=== PATIENT | female | born 1945 | race African-American/Black ===

== ENCOUNTER 2023-01-12 05:09 | Observation (INO) | payer MEDICARE, OTHER ==
[2023-01-12] VITALS (14 sets, daily range): BP systolic 131–166; BP diastolic 61–95
[~2023-01-12] VITALS: Ht 165.1 cm; Wt 109.6 kg
[2023-01-12] MEDS ORDERED: LEVOTHYROXIN75 MCG PO (05:39)
[2023-01-12] MEDS ORDERED: METOPROL TAR25 MG PO (05:40)
[2023-01-12] MEDS ORDERED: ATORVASTATIN CA40 MG PO (05:41)
[2023-01-12] MEDS ORDERED: FUROSEMIDE20 MG PO (05:43)
[2023-01-12] MEDS ORDERED: LOSARTAN POTASS50 MG PO (05:44)
[2023-01-12] MEDS ORDERED: NORVASC PO (05:45)
[2023-01-12] MEDS ORDERED: LANTUS100 UNIT SC (05:46)
[2023-01-12] MEDS ORDERED: HUMALOG100 UNIT (05:47)
[2023-01-12] MEDS ORDERED: ASPIRIN81 MG PO (05:48)
[2023-01-12 05:54] LABS: BASO% 0.3 % (0-3); EOS% 0.9 % (0-8); HEMATOCRIT 38.3 % (37.0-47.0); HEMOGLOBIN 11.3 g/dl (12.0-16.0); IMMATURE GRANULOCYTES 0.2 % (0.0-5.0); LYMPH% 8.9 % (15-41); MEAN CELL VOLUME 91.6 fL CALC (80.0-100.0); MEAN CORPUSCULAR HGB CONC 29.5 g/dL CAL (32.0-36.0); MONO% 12.8 % (2-13); NEUT# 8.45 thou/uL (2.00-7.15); NEUT% 76.9 % (42-76); RED BLOOD COUNT 4.18 mill/uL (4.20-5.60); RED CELL DISTRI WIDTH 15.3 % (11.5-15.5)
[2023-01-12 06:07] LABS: ALBUMIN 4.2 g/dL (3.2-5.0); BILIRUBIN, TOTAL 0.2 mg/dL (0.02-1.3); CREATININE 1.9 mg/dL (0.5-1.0); POTASSIUM 4.7 mmol/l (3.5-5.1)
[2023-01-12 06:08] LABS: INTERNATIONAL NORMALIZED RATIO 1.1 RATIO (0.7-1.3); PROTHROMBIN TIME 10.6 SECONDS (9.0-12.5)
[2023-01-12 07:03] LABS: BASO% 0.2 % (0-3); EOS% 0.8 % (0-8); HEMATOCRIT 35.5 % (37.0-47.0); HEMOGLOBIN 10.5 g/dl (12.0-16.0); IMMATURE GRANULOCYTES 0.2 % (0.0-5.0); LYMPH% 7.3 % (15-41); MEAN CORPUSCULAR HGB 26.9 pG CALC (26.0-32.0); MEAN CORPUSCULAR HGB CONC 29.6 g/dL CAL (32.0-36.0); NEUT# 9.22 thou/uL (2.00-7.15); NEUT% 79.5 % (42-76); RED BLOOD COUNT 3.9 mill/uL (4.20-5.60); RED CELL DISTRI WIDTH 15.4 % (11.5-15.5)
[2023-01-12 07:14] LABS: CREATININE 1.8 mg/dL (0.5-1.0); POTASSIUM 4.6 mmol/l (3.5-5.1)
[2023-01-13 01:53] LABS: URINE BILIRUBIN - DIPSTICK NEGATIVE (NEGATIVE); URINE BLOOD DIPSTICK SMALL (NEGATIVE); URINE COLOR YELLOW; URINE GLUCOSE - DIPSTICK NEGATIVE (NEGATIVE); URINE KETONE NEGATIVE (NEGATIVE); URINE LEUK ESTERASE NEGATIVE (NEGATIVE); URINE PH 6.5 (4.5-8.0); URINE PROTEIN - DIPSTICK 100 mg/dL (NEG-TRACE); URINE UROBILINOGEN - DIPSTICK 0.2 E.U./dL (0.2)
[2023-01-13 01:56] LABS: URINE NITRITE - DIPSTICK NEGATIVE (Negative)
[2023-01-13 01:58] LABS: URINE SQUAMOUS EPITHELIAL CELL FEW EPI/hpf (0-FEW); URINE WBC 0-2 WBC/hpf (0-5)
[2023-01-13 03:33] VITALS: BP 166/77
[2023-01-13 05:40] LABS: BASO% 0.2 % (0-3); EOS% 1.1 % (0-8); HEMATOCRIT 31.5 % (37.0-47.0); HEMOGLOBIN 9.3 g/dl (12.0-16.0); IMMATURE GRANULOCYTES 0.2 % (0.0-5.0); LYMPH% 25.2 % (15-41); MEAN CELL VOLUME 91.6 fL CALC (80.0-100.0); MEAN CORPUSCULAR HGB CONC 29.5 g/dL CAL (32.0-36.0); MONO% 17.8 % (2-13); NEUT# 5.18 thou/uL (2.00-7.15); NEUT% 55.5 % (42-76); RED BLOOD COUNT 3.44 mill/uL (4.20-5.60); RED CELL DISTRI WIDTH 15.5 % (11.5-15.5)
[2023-01-13 06:05] LABS: BILIRUBIN, TOTAL 0.1 mg/dL (0.02-1.3); CREATININE 1.7 mg/dL (0.5-1.0); MAGNESIUM 2.1 mg/dL (1.6-2.3); POTASSIUM 4.7 mmol/l (3.5-5.1); TOTAL PROTEIN 5.9 g/dL (6.3-8.2)
[2023-01-13 06:25] VITALS: BP 146/67
[2023-01-13 11:10] VITALS: BP 150/74
[2023-01-13 15:40] VITALS: BP 149/76
[2023-01-13 19:13] VITALS: BP 156/65
[2023-01-13 23:58] VITALS: BP 135/91
[2023-01-14 04:34] VITALS: BP 149/77
[2023-01-14 05:18] LABS: BASO% 0.3 % (0-3); EOS% 2.8 % (0-8); HEMATOCRIT 30.1 % (37.0-47.0); IMMATURE GRANULOCYTES 0.3 % (0.0-5.0); LYMPH% 28.8 % (15-41); MEAN CELL VOLUME 92.6 fL CALC (80.0-100.0); MEAN CORPUSCULAR HGB 27.7 pG CALC (26.0-32.0); MEAN CORPUSCULAR HGB CONC 29.9 g/dL CAL (32.0-36.0); MONO% 14.4 % (2-13); NEUT# 4.61 thou/uL (2.00-7.15); NEUT% 53.4 % (42-76); RED BLOOD COUNT 3.25 mill/uL (4.20-5.60); RED CELL DISTRI WIDTH 15.6 % (11.5-15.5)
[2023-01-14 05:34] LABS: ALBUMIN 2.9 g/dL (3.2-5.0); CREATININE 1.6 mg/dL (0.5-1.0); POTASSIUM 4.5 mmol/l (3.5-5.1); TOTAL PROTEIN 5.8 g/dL (6.3-8.2)
[2023-01-14 05:35] LABS: BILIRUBIN, TOTAL 0.2 mg/dL (0.02-1.3)
[2023-01-14 06:55] VITALS: BP 149/77
[2023-01-14 18:05] VITALS: BP 155/80
[2023-01-14 19:18] VITALS: BP 145/66
[2023-01-15] VITALS (7 sets, daily range): BP systolic 128–161; BP diastolic 63–84
[2023-01-16 00:22] VITALS: BP 144/76
[2023-01-16 04:39] VITALS: BP 150/74
[2023-01-16 05:43] LABS: BASO% 0.5 % (0-3); EOS% 5.8 % (0-8); HEMATOCRIT 29.4 % (37.0-47.0); HEMOGLOBIN 8.6 g/dl (12.0-16.0); IMMATURE GRANULOCYTES 0.2 % (0.0-5.0); LYMPH% 34.7 % (15-41); MEAN CORPUSCULAR HGB 27.2 pG CALC (26.0-32.0); MEAN CORPUSCULAR HGB CONC 29.3 g/dL CAL (32.0-36.0); MONO% 11.6 % (2-13); NEUT# 2.95 thou/uL (2.00-7.15); NEUT% 47.2 % (42-76); RED BLOOD COUNT 3.16 mill/uL (4.20-5.60); RED CELL DISTRI WIDTH 15.5 % (11.5-15.5)
[2023-01-16 05:58] LABS: BILIRUBIN, TOTAL 0.2 mg/dL (0.02-1.3); CREATININE 1.9 mg/dL (0.5-1.0); TOTAL PROTEIN 6.3 g/dL (6.3-8.2)
[2023-01-16 06:00] LABS: POTASSIUM 4.1 mmol/l (3.5-5.1)
[2023-01-16 06:34] VITALS: BP 147/61
[2023-01-16 10:05] VITALS: BP 139/85
[2023-01-16] MEDS ORDERED: ROBITUSSIN AC10 ML PO (11:08)
== END 2023-01-16 14:35 ==
LOC: ED 05:09 → ED-I 05:43 → ED 05:43 → ED-I 06:20 → ED 06:33 → MS2 06:34
PROVIDERS: Family Medicine; Internal Medicine; Nurse Practitioner Family; Psychiatry & Neurology Neurology; ADMIT Internal Medicine; ATTEND Internal Medicine
PROC: 05H533Z Insertion of Infusion Device into Right Subclavian Vein, Percutaneous Approach (ICD-10-PCS; principal; 2023-01-12)
DX: I69.351 Hemiplegia and hemiparesis following cerebral infarction affecting right dominant side (principal); U07.1 COVID-19; R05.9 Cough, unspecified; N17.9 Acute kidney failure, unspecified; E86.0 Dehydration; I10 Essential (primary) hypertension; E11.9 Type 2 diabetes mellitus without complications; E03.9 Hypothyroidism, unspecified; F40.240 Claustrophobia; E78.5 Hyperlipidemia, unspecified; Z79.4 Long term (current) use of insulin
CPT/HCPCS: Q3014